=== PATIENT | female | born 1965 | race Caucasian/White ===

== ENCOUNTER 2019-09-10 19:05 | Emergency (ER) | payer OTHER ==
[~2019-09-10] VITALS: Ht 165.1 cm; Wt 70.8 kg
== END 2019-09-10 23:10 | disposition home or self-care (01) ==
LOC: ER 19:05
DX: S61.011A Laceration without foreign body of right thumb without damage to nail, initial encounter (principal); W25.XXXA Contact with sharp glass, initial encounter
CPT/HCPCS: 12001; 73140; 90471; 90714; 99283-25

== ENCOUNTER 2025-04-30 14:04 | Emergency (ER) | payer OTHER ==
[~2025-04-30] VITALS: Ht 165.1 cm; Wt 70.3 kg
[2025-04-30 15:03] VITALS: BP 142/100
[2025-04-30] MEDS ORDERED: Ketorolac Tromethamine 15mg Vial IM ONE ×2 (15:05→17:10)
== END 2025-04-30 17:34 | disposition home or self-care (01) ==
LOC: ER 14:04
DX: M79.661 Pain in right lower leg (principal); Z59.89 Other problems related to housing and economic circumstances
CPT/HCPCS: 73590; 93971; 99283-25; J1885